=== PATIENT | female | born 1995 | race African-American/Black ===

== ENCOUNTER 2023-06-16 17:37 | Emergency (ER) | payer OTHER ==
[2023-06-16 17:41] VITALS: BP 118/79; PULSE 75; RESP 16; TEMP 97.9; BMI 24.2
[2023-06-16] MEDS ORDERED: IBUPROFEN 600 MG TABLET (FP) PO ONE ×2 (18:14→18:24)
== END 2023-06-16 19:27 | disposition home or self-care (01) ==
LOC: JERFT 17:37
DX: S99.922A Unspecified injury of left foot, initial encounter (principal); S90.812A Abrasion, left foot, initial encounter; W20.8XXA Other cause of strike by thrown, projected or falling object, initial encounter; Y99.0 Civilian activity done for income or pay
CPT/HCPCS: 73630-TC-LT; 99283-25

== ENCOUNTER 2023-10-31 15:38 | Emergency (ER) | payer OTHER ==
[2023-10-31 15:49] VITALS: BP 103/63; PULSE 104; RESP 18; TEMP 98; BMI 28.1
[2023-10-31] MEDS ORDERED: ACETAMINOPHEN 160 MG/5 ML *Children Solution PO ONE (16:02)
[2023-10-31] MEDS ORDERED: ACETAMINOPHEN 500 MG TABLET (FP) ONE (16:05)
[2023-10-31 16:23] LABS: HCG,QUALITATIVE URINE Positive
[2023-10-31 16:24] LABS: PH,URINE 6.5 (5.0-8.0); URINE APPEARANCE CLEAR; URINE BILIRUBIN NEGATIVE (NEGATIVE); URINE COLOR YELLOW; URINE GLUCOSE (UA) NEGATIVE (NEGATIVE); URINE KETONE 3+ (NEGATIVE); URINE LEUK ESTERASE NEGATIVE (NEGATIVE); URINE NITRITE NEGATIVE (NEGATIVE); URINE PROTEIN NEGATIVE (NEGATIVE)
[2023-10-31 16:40] LABS: THROAT:GRP A STREP NOT DETECTED (NOTDETECTED)
[2023-10-31] MEDS ORDERED: SODIUM CHLORIDE 0.9% 1000 ML INFUS.BAG IV ONE ×2 (16:50→18:27)
[2023-10-31 17:38] LABS: BASO % 0.5 % (0-2.0); EOS % 0.6 % (0-4.5); HEMATOCRIT 32.5 % (32.4-45.2); HEMOGLOBIN 10.6 GM/dL (10.7-15.3); MCH 25.8 pg (25.7-33.7); MCHC 32.5 g/dl (32.0-36.0); MEAN CELL VOLUME 79.3 fl (80-96); MEAN PLT VOLUME 8.3 fl (7.5-11.1); MONO % 15.9 % (3.8-10.2); PLATELET COUNT 180 10^3/uL (134-434); RDW 15.9 % (11.6-15.6); WHITE BLOOD COUNT 4.5 K/mm3 (4.0-10.0)
[2023-10-31 18:08] LABS: POTASSIUM 3.2 mmol/L (3.5-5.1)
[2023-10-31 18:11] LABS: CALCIUM 9.7 mg/dL (8.5-10.1)
[2023-10-31 18:12] LABS: ALBUMIN 3.5 g/dl (3.4-5.0); BLOOD UREA NITROGEN 4.5 mg/dL (7-18)
[2023-10-31 18:17] LABS: TOT PROT 7.2 g/dl (6.4-8.2)
[2023-10-31 18:38] LABS: CREATININE 0.5 mg/dL (0.55-1.3)
== END 2023-10-31 20:24 | disposition home or self-care (01) ==
LOC: JERFT 15:38
DX: R09.81 Nasal congestion (principal); R50.9 Fever, unspecified; R53.83 Other fatigue; R51.9 Headache, unspecified; J02.9 Acute pharyngitis, unspecified; M79.10 Myalgia, unspecified site; E86.0 Dehydration; J10.1 Influenza due to other identified influenza virus with other respiratory manifestations; Z20.822 Contact with and (suspected) exposure to COVID-19
CPT/HCPCS: 0241U-QW; 36415; 80053; 81003; 84702; 84703; 85025; 87086; 87651; 99284-25

== ENCOUNTER 2023-11-03 17:58 | Emergency (ER) | payer SELFPAY ==
[2023-11-03 18:06] VITALS: BP 110/67; PULSE 75; RESP 19; TEMP 98.6; BMI 28.5
== END 2023-11-03 21:00 | disposition home or self-care (01) ==
LOC: JERFT 17:58
DX: O99.711 Diseases of the skin and subcutaneous tissue complicating pregnancy, first trimester (principal); R21 Rash and other nonspecific skin eruption; T37.5X5A Adverse effect of antiviral drugs, initial encounter; Z3A.11 11 weeks gestation of pregnancy
CPT/HCPCS: 99283-25

== ENCOUNTER 2024-02-13 18:33 | Emergency (ER) | payer BC, OTHER ==
[2024-02-13 18:40] VITALS: RESP 20; TEMP 98; BMI 28.5
[2024-02-13] MEDS ORDERED: ACETAMINOPHEN INJECTION 100 ML IVPB ONE (20:57)
[2024-02-13] MEDS ORDERED: METOCLOPRAMIDE HCL INJECTION 10 MG/2 ML VIAL ONE (20:57)
[2024-02-13] MEDS: SODIUM CHLORIDE 0.9% 500 ML INFUS.BAG IV ONE (21:06)
[2024-02-13] MEDS: METOCLOPRAMIDE HCL INJECTION 10 MG/2 ML VIAL IVPUSH ONE (21:06)
[2024-02-13] MEDS: ACETAMINOPHEN 1000 MG/100 ML BAG IVPB ONE (21:06)
[2024-02-13 21:16] LABS: BASO % 0.3 % (0-2.0); EOS % 1.4 % (0-4.5); HEMOGLOBIN 10.4 GM/dL (10.7-15.3); LYMPH % 28.3 % (8-40); MCH 26.4 pg (25.7-33.7); MCHC 32.6 g/dl (32.0-36.0); MEAN PLT VOLUME 9.5 fl (7.5-11.1); PH,URINE 6.5 (5.0-8.0); PLATELET COUNT 174 10^3/uL (134-434); RBC 3.95 M/mm3 (3.60-5.2); RDW 15.1 % (11.6-15.6); URINE APPEARANCE CLEAR; URINE BILIRUBIN NEGATIVE (NEGATIVE); URINE COLOR YELLOW; URINE GLUCOSE (UA) NEGATIVE (NEGATIVE); URINE KETONE NEGATIVE (NEGATIVE); URINE LEUK ESTERASE NEGATIVE (NEGATIVE); URINE NITRITE NEGATIVE (NEGATIVE); URINE PROTEIN NEGATIVE (NEGATIVE); WHITE BLOOD COUNT 6.9 K/mm3 (4.0-10.0)
[2024-02-13 21:32] LABS: PROTHROMBIN TIME (PATIENT) 11.6 SEC (9.7-13.0)
[2024-02-13 21:34] LABS: ACTIVATED PTT 26.6 SECONDS (25.2-36.5)
[2024-02-13 21:45] LABS: POTASSIUM 4.1 mmol/L (3.5-5.1)
[2024-02-13 21:47] LABS: ALBUMIN 3.1 g/dl (3.4-5.0); CALCIUM 8.7 mg/dL (8.5-10.1)
[2024-02-13 21:48] LABS: BLOOD UREA NITROGEN 6.9 mg/dL (7-18)
[2024-02-13 21:50] LABS: CREATININE 0.4 mg/dL (0.55-1.3)
[2024-02-13 21:52] LABS: BILIRUBIN,TOTAL 0.3 mg/dL (0.2-1); TOT PROT 7.1 g/dl (6.4-8.2)
[2024-02-13 23:53] VITALS: BP 99/65; PULSE 87
== END 2024-02-14 00:20 | disposition left against medical advice (07) ==
LOC: JER 18:33
PROC: 3E030NZ Introduction of Analgesics, Hypnotics, Sedatives into Peripheral Vein, Open Approach (ICD-10-PCS; principal; 2024-02-13)
PROC: 3E030GC Introduction of Other Therapeutic Substance into Peripheral Vein, Open Approach (ICD-10-PCS; 2024-02-13)
DX: O99.891 Other specified diseases and conditions complicating pregnancy (principal); R51.9 Headache, unspecified; R42 Dizziness and giddiness; R20.0 Anesthesia of skin; Z3A.27 27 weeks gestation of pregnancy
CPT/HCPCS: 36415; 80053; 81003; 84484; 84702; 84703; 85025; 85379; 85610; 85730; 87086; 93005; 93010; 99284-25; J0131

== ENCOUNTER 2024-02-20 20:28 | Emergency (ER) | payer BC, OTHER ==
[2024-02-20 20:42] VITALS: BP 107/61; RESP 16; TEMP 97.6; BMI 28.5
[2024-02-20] MEDS ORDERED: LORATADINE 10 MG TABLET ONE (23:33)
[2024-02-20] MEDS ORDERED: ACETAMINOPHEN 500 MG TABLET (FP) ONE (23:33)
[2024-02-20] MEDS: LORATADINE 10 MG TABLET PO ONE (23:34)
[2024-02-20] MEDS: ACETAMINOPHEN 500 MG TABLET (FP) PO ONE (23:34)
[2024-02-20 23:37] VITALS: PULSE 89
== END 2024-02-20 23:54 | disposition home or self-care (01) ==
LOC: JER 20:28 → JERFT 20:28
DX: O99.512 Diseases of the respiratory system complicating pregnancy, second trimester (principal); J06.9 Acute upper respiratory infection, unspecified; R05.9 Cough, unspecified; Z3A.27 27 weeks gestation of pregnancy; O99.352 Diseases of the nervous system complicating pregnancy, second trimester; R51.9 Headache, unspecified
CPT/HCPCS: 99283-25

== ENCOUNTER 2024-02-27 21:17 | Emergency (ER) | payer BC ==
[2024-02-27 21:22] VITALS: BMI 27.4
[2024-02-27 22:22] VITALS: BP 109/66; PULSE 112; RESP 18; TEMP 98.1
== END 2024-02-27 22:46 | disposition home or self-care (01) ==
LOC: JER 21:17 → JERFT 21:17 → JER 22:46
DX: O99.892 Other specified diseases and conditions complicating childbirth (principal); R05.9 Cough, unspecified; R09.82 Postnasal drip; O26.892 Other specified pregnancy related conditions, second trimester; R11.0 Nausea; Z3A.28 28 weeks gestation of pregnancy
CPT/HCPCS: 0241U-QW; 99283-25

== ENCOUNTER 2024-05-11 05:55 | Inpatient (IN) | payer BC, OTHER ==
[2024-05-11] MEDS: ELECTROLYTE-148 SOLN 500 ML IV SCH ×2 (06:15→07:40)
[2024-05-11 06:31] VITALS: BMI 29.6
[2024-05-11] MEDS: CITRIC ACID/SODIUM CITRATE 30 ML UNIT-DOSE CUP PO ONE (07:40)
[2024-05-11] MEDS ORDERED: ONDANSETRON 4 MG/2 ML VIAL IVPUSH PRN (08:12)
[2024-05-11] MEDS ORDERED: FENTANYL CITRATE/PF 50 MCG/ML VIAL ONE (08:18)
[2024-05-11] MEDS ORDERED: morphine SULFATE/PF 1 MG/2 ML (2cc Syringe - QUVA) ONE (08:18)
[2024-05-11] MEDS ORDERED: ceFAZolin SODIUM 1 GM VIAL ONE (08:32)
[2024-05-11] MEDS ORDERED: PHENYLEPHRINE HCL 10 MG/1 ML SINGLE DOSE VIAL ONE (08:32)
[2024-05-11] MEDS ORDERED: ONDANSETRON 4 MG/2 ML VIAL ONE (08:32)
[2024-05-11] MEDS ORDERED: OXYTOCIN 10 UNITS/ML VIAL ONE (09:09)
[2024-05-11] MEDS ORDERED: METHYLERGONOVINE MALEATE 0.2 MG/1 ML AMP IM PRN (10:19)
[2024-05-11 11:11] LABS: CORD BASE EXCESS -4.6 mmol/L (0-2); CORD HCO3 22.2 mmHg (20-29); CORD PCO2 47.3 mmHg (30-78); CORD pH 7.29 (7.14-7.44)
[2024-05-11 11:13] LABS: CORD HCO3 24.3 mmHg (20-29); CORD PCO2 64.7 mmHg (30-78); CORD pH 7.193 (7.14-7.44)
[2024-05-11] MEDS ORDERED: OXYTOCIN 20 UNITS in 0.9% NS 20 UNIT/1,000 ML INFUS.BAG IV ONE (11:15)
[2024-05-11] MEDS: IBUPROFEN 600 MG TABLET (FP) PO PRN (12:41)
[2024-05-11] MEDS: OXYTOCIN 20 UNITS in 0.9% NS 20 UNIT/1,000 ML INFUS.BAG IV SCH (13:08)
[2024-05-11 15:53] LABS: BASO % 0.2 % (0-2.0); EOS % 0.3 % (0-4.5); HEMATOCRIT 27.2 % (32.4-45.2); HEMOGLOBIN 8.7 GM/dL (10.7-15.3); LYMPH % 16.9 % (8-40); MCH 24.2 pg (25.7-33.7); MCHC 32.2 g/dl (32.0-36.0); MEAN CELL VOLUME 75.2 fl (80-96); MEAN PLT VOLUME 9.1 fl (7.5-11.1); MONO % 9.9 % (3.8-10.2); NEUT % 72.7 % (42.8-82.8); PLATELET COUNT 113 10^3/uL (134-434); RBC 3.61 M/mm3 (3.60-5.2); RDW 16.2 % (11.6-15.6); WHITE BLOOD COUNT 8.5 K/mm3 (4.0-10.0)
[2024-05-11] MEDS: ACETAMINOPHEN 325 MG TABLET (FP) PO PRN (17:17)
[2024-05-11] MEDS ORDERED: oxyCODONE HCL 5 MG TABLET PO PRN (22:19)
[2024-05-12 07:24] LABS: BASO % 0.4 % (0-2.0); EOS % 0.6 % (0-4.5); HEMATOCRIT 24.3 % (32.4-45.2); HEMOGLOBIN 7.9 GM/dL (10.7-15.3); LYMPH % 12.2 % (8-40); MCH 24.5 pg (25.7-33.7); MCHC 32.6 g/dl (32.0-36.0); MEAN CELL VOLUME 75.2 fl (80-96); MEAN PLT VOLUME 8.6 fl (7.5-11.1); MONO % 12.5 % (3.8-10.2); NEUT % 74.3 % (42.8-82.8); PLATELET COUNT 100 10^3/uL (134-434); RBC 3.23 M/mm3 (3.60-5.2); RDW 16.4 % (11.6-15.6); WHITE BLOOD COUNT 7.3 K/mm3 (4.0-10.0)
[2024-05-12] MEDS ORDERED: BISACODYL 10 MG SUPP.RECT RC PRN (10:19)
[2024-05-12] MEDS: SIMETHICONE 80 MG TAB.CHEW (FP) PO PRN (13:31)
[2024-05-12] MEDS: IRON SUCROSE INJECTION 200 MG in SODIUM CHLORIDE 100 ML IVPB ONE (13:31)
[2024-05-13] MEDS: DIPHTH,PERTUSS(ACELL),TET 0.5 ML DISP.SYRIN IM ONE (09:37)
[2024-05-13] MEDS ORDERED: IRON SUCROSE INJECTION 200 MG in SODIUM CHLORIDE 100 ML IVPB ONE (11:36)
[2024-05-13] MEDS: IRON SUCROSE INJECTION 200 MG in SODIUM CHLORIDE 100 ML IVPB ONE (14:07)
[2024-05-13 22:11] VITALS: RESP 16
[2024-05-14 09:24] VITALS: BP 104/62; PULSE 94; TEMP 98
== END 2024-05-14 13:53 | disposition home or self-care (01) | DRG 788 ==
LOC: JLDR 05:55 → J3W 12:30
PROVIDERS: ADMIT Obstetrics & Gynecology; ATTEND Obstetrics & Gynecology
PROC: 10D00Z1 Extraction of Products of Conception, Low, Open Approach (ICD-10-PCS; principal; 2024-05-11)
DX: O34.219 Maternal care for unspecified type scar from previous cesarean delivery (principal); O99.02 Anemia complicating childbirth; D64.89 Other specified anemias; Z3A.39 39 weeks gestation of pregnancy; Z37.0 Single live birth
CPT/HCPCS: 36415; 36600; 59409; 82803; 85025; 88307-TC; 90715; J1756

== ENCOUNTER 2024-12-24 06:16 | Emergency (ER) | payer BC, OTHER ==
[2024-12-24 06:26] VITALS: BP 113/63; PULSE 90; RESP 20; TEMP 98.6; BMI 28.5
== END 2024-12-24 07:26 | disposition home or self-care (01) ==
LOC: JER 06:16
DX: J10.1 Influenza due to other identified influenza virus with other respiratory manifestations (principal); M79.10 Myalgia, unspecified site; R50.9 Fever, unspecified; R05.9 Cough, unspecified; M54.6 Pain in thoracic spine; R09.81 Nasal congestion; J34.89 Other specified disorders of nose and nasal sinuses; R53.81 Other malaise; Z20.822 Contact with and (suspected) exposure to COVID-19
CPT/HCPCS: 0241U-QW; 99283-25